=== PATIENT | male | born 1950 | race Caucasian/White ===

== ENCOUNTER → 2019-06-19 | Outpatient (CLI) | payer MEDICARE ==
--- NOTE | 2019-06-23 11:31 | HM ---
HOLTER MONITOR REPORT A 24-hour Holter monitor shows sinus mechanism, heart ranging from 41 to 121 beats per minute. Average heart rate 65 beats per minute. Sinus bradycardia in the 40s at about 7:00 in the morning. Nonsustained atrial tachycardia and one run nonsustained ventricular tachycardia. MMAMANDA / IRINEO: [id number] /
== END | disposition home or self-care (01) ==
LOC: RADECHMAIN 11:47
PROVIDERS: ATTEND Family Medicine
DX: I47.1 Supraventricular tachycardia (principal); R00.1 Bradycardia, unspecified
CPT/HCPCS: 93225; 93226

== ENCOUNTER 2021-02-04 07:20 | Day surgery (SDC) | payer MEDICARE, OTHER ==
[2021-01-30 10:17] VITALS: BMI 38.3
[~2021-02-04 07:20] MED LIST: SODIUM CHLORIDE 0.9% 1,000 ML IV SCH
[2021-02-04 07:48] VITALS: TEMP 97.8
[2021-02-04 08:16] LABS: African American GFR (CKD) >90 (>60 ml/min/1.73 sqM); Anion Gap 7 mmol/L; Blood Urea Nitrogen 12 mg/dL (9-20); Calcium 9.3 mg/dL (8.4-10.2); Carbon Dioxide 27 mmol/L (22-30); Chloride 107 mmol/L (98-107); Glucose 120 mg/dL (74-99); Non-African American GFR(CKD) >90 (>60 ml/min/1.73 sqM); Potassium 4.3 mmol/L (3.5-5.1); Sodium 141 mmol/L (137-145)
[2021-02-04] MEDS ORDERED: SODIUM CHLORIDE 0.9% 500 ML 500 ML IV ONE (08:51)
[2021-02-04] MEDS ORDERED: BENZOCAINE SPRAY 1 CAN MUCOUS MEM ONE (09:05)
[2021-02-04 10:55] VITALS: RESP 18
[2021-02-04 10:58] VITALS: BP 132/73; PULSE 53
--- NOTE | 2021-02-04 22:12 | P.TEE ---
Description of Procedure(s): Procedure performed: Transesophageal Echocardiogram with color flow doppler, pulsed wave doppler and continuous wave doppler, moderate conscious sedation Moderate conscious sedation: Moderate conscious sedation was supplied by anesthesia, see anesthesia note for full details Complications: none Indications: Symptomatic persistent Afib History: Patient is a pleasant 70-year-old male with history of persistent atrial fibrillation who has been having dyspnea with exertion. Therefore recommendation was for ASHLEY and cardioversion. PROCEDURE: After the risks, benefits and alternatives of the above mentioned procedure was explained in detail with the patient, informed consent was obtained. Patient was brought to the lab in a fasting state. Patient was given sedation. The throat was sprayed with Hurricane to anesthetize the throat. A lubricated Omni probe was then introduced into the esophagus and stomach and multiple views were obtained. 2D echo with color flow doppler, pulsed wave doppler and continuous wave doppler was utilized. Agitated saline bubbles were injected to assess for any intra-atrial shunt. The probe was then removed. Synchronized cardioversion was performed with 360J x 1 with successful cardioversion to normal sinus rhythm. Patient tolerated the procedure well. Patient was transferred to the post procedure area in stable and satisfactory condition. FINDINGS: 1. The aortic valve is tricuspid and function normally. There is trace aortic insufficiency. 2. The mitral valve appears be normal with mild regurgitation. 3. Tricuspid valve appears to be normal. 4. The interatrial septum is intact. No evidence of PFO. 5. Left atrial appendage is free of clot. 6. Left ventricular size is normal. Left ventricular function is mildly reduced with EF 45% and global hypokinesis.
== END 2021-02-04 11:18 | disposition home or self-care (01) ==
LOC: CATHCVL 07:20
PROVIDERS: ATTEND Internal Medicine
DX: I48.19 Other persistent atrial fibrillation (principal); Q87.418 Marfan syndrome with other cardiovascular manifestations; M19.90 Unspecified osteoarthritis, unspecified site; I10 Essential (primary) hypertension; Z20.822 Contact with and (suspected) exposure to COVID-19; H40.9 Unspecified glaucoma; I71.9 Aortic aneurysm of unspecified site, without rupture; Z79.82 Long term (current) use of aspirin; Z79.899 Other long term (current) drug therapy; Z82.49 Family history of ischemic heart disease and other diseases of the circulatory system; E78.5 Hyperlipidemia, unspecified; E04.2 Nontoxic multinodular goiter; Z79.01 Long term (current) use of anticoagulants
CPT/HCPCS: 80048; 87635; 92960; 93312; 93320; 93325

== ENCOUNTER → 2021-11-26 | Outpatient (CLI) | payer MEDICARE, OTHER ==
[2021-11-26 14:41] LABS: African American GFR (CKD) >90 (>60 ml/min/1.73 sqM); Blood Urea Nitrogen 13 mg/dL (9-20); Non-African American GFR(CKD) 90 (>60 ml/min/1.73 sqM)
--- NOTE | 2021-11-26 21:16 | CT ---
EXAMINATION TYPE: CT urogram wo/w con DATE OF EXAM: 11/26/2021 INDICATION: right renal mass CT DLP: 6079.9 mGy.cm Automated Exposure Control for Dose Reduction was Utilized. TECHNIQUE AND CONTRAST: CT scan of the abdomen and pelvis is performed without and with IV Contrast, as per CT urogram protoc ol. Patient injected with 100 mL of Isovue 300. 3-D reconstruction images were generated on an [employer] workstation and reviewed. COMPARISON: None available FINDINGS: 11 mm elongated hyperdensity seen at the inferior pole of the right kidney likely representing a michelle l calculus. Other scattered bilateral renal calculi measuring up to 3 mm. No hydroureter or hydroneph rosis. Simple cyst is seen in the lower pole of the right kidney measuring 4.8 cm without definite dickinson spicious feature or abnormal enhancement. A cyst is seen at the upper pole of the left kidney measuring 8mm with questionable density within, s uboptimally assessed by this scan. A small simple cyst is seen at the lower pole of the right kidney. Unremarkable kidneys otherwise. Unremarkable ureters. No gross urinary bladder abnormality. Unremark able prostate and seminal vesicles. Unremarkable liver, gallbladder, spleen and adrenals. Fatty infiltration of the pancreas. Nondistende d stomach, duodenum and small bowel. No gross colonic abnormality. Normal appendix. Bilateral fat-con taining inguinal hernias. Scattered arterial atherosclerotic calcifications. No suspicious lymphadenopathy or sizable ascites. Cardiomegaly. Unremarkable lung bases. Sclerotic focus within L3 vertebral body, possibly representin g a bone island. No aggressive bone lesion. IMPRESSION: Bilateral renal calculi measuring up to 11 mm at the lower pole of the right kidney. Indeterminate cy stic lesion measuring 8mm at the upper pole of the left kidney, too small to characterize by this CT scan. Recommend follow-up CT scan in 6 months for reassessment. A few right simple renal cysts withou t suspicious feature. Other incidental findings as described above.
== END | disposition home or self-care (01) ==
LOC: RADCTMAIN 14:00
PROVIDERS: ATTEND Urology
DX: N20.0 Calculus of kidney (principal); N28.1 Cyst of kidney, acquired
CPT/HCPCS: 82565; 84520; 74178; 36415; 74400; Q9967

== ENCOUNTER → 2024-02-09 | Outpatient (CLI) | payer MEDICARE ==
--- NOTE | 2024-02-17 23:36 | MR ---
EXAMINATION TYPE: MR shoulder LT wo con DATE OF EXAM: 02/09/2024 COMPARISON: No radiographic correlation available. HISTORY: 71-year-old male Left shoulder pain x 3 weeks. M75.112 INCOMPLETE ROTATR-CUFF TEAR/RUPTR OF L CONRADO TECHNIQUE: Multiplanar, multisequence imaging of the left shoulder is performed without contrast. FINDINGS: The long head biceps tendon appears markedly thinned and may be torn. Only diminutive fibers are note d along the bicipital groove. Heterogeneous signal of the subscapularis tendon without discrete tear. Heterogeneous signal of the infraspinatus tendon. Some minimal bursal sided fraying of the supraspina tus tendon. No high-grade partial or full thickness tear of either supraspinatus or infraspinatus ten dons. There is [id number] degenerative change at the glenohumeral joint with diffuse joint space narr owing. Some irregularity of the subchondral bone and reactive marrow signal changes especially along the mid and inferior aspect of the anterior glenoid. No atrophy of the rotator cuff musculature. Degenerative signal in the superior labrum. Some degenerative blunting of the posterior labrum. No pa ra labral cyst. No significant minimal joint effusion. There is edematous soft tissue replacement in the rotator cuff interval. Trace fluid within the subacromial/subdeltoid bursa. Heterogeneous red marrow hyperplasia. Mild degenerative change of the AC joint without subacromial impingement. IMPRESSION: 1. Edematous soft tissue replacement in the rotator cuff interval. Some differential considerations i nclude synovitis, biceps dennis sprain, and adhesive capsulitis. 2. Moderate glenohumeral joint OA with the greatest irregular cartilage loss along the mid and inferi or aspect of the anterior glenoid. 3. Supraspinatus and infraspinatus tendinosis. Some minimal bursal sided fraying is present of the dickinson praspinatus tendon. No high-grade partial or full-thickness rotator cuff tear. 4. The long head biceps tendon appears markedly thinned and may be torn. Only diminutive fibers are n oted along the bicipital groove.
== END | disposition home or self-care (01) ==
LOC: RADMRIMAIN 09:56
PROVIDERS: ATTEND Orthopaedic Surgery
DX: M75.112 Incomplete rotator cuff tear or rupture of left shoulder, not specified as traumatic (principal); R60.9 Edema, unspecified; Z96.612 Presence of left artificial shoulder joint; M19.012 Primary osteoarthritis, left shoulder; M67.814 Other specified disorders of tendon, left shoulder

== ENCOUNTER → 2024-05-24 | Outpatient (CLI) | payer MEDICARE ==
[2024-05-24 18:36] LABS: Hepatitis A Antibody IgM Nonreactive (Nonreactive); Hepatitis B Core IgM Nonreactive (Nonreactive); Hepatitis B Surface Antigen Nonreactive (Nonreactive); Hepatitis C IgG Antibody Nonreactive (Nonreactive)
[2024-05-24 18:50] LABS: HGB 13.9 g/dL (13.0-17.0); MCH 25.5 pg (27.0-32.0); MCHC 30.2 g/dL (32.0-37.0); MCV 84.4 FL (80.0-97.0); Mean Platelet Volume 11.5 FL (9.5-12.2); NRBC Per 100 WBC 0 X 10*3/uL (0.00-0.01); Platelet Count 291 X 10*3/uL (140-440); RBC 5.45 X 10*6/uL (4.40-5.60); RDW 23.1 % (11.5-14.5); WBC 10.17 X 10*3/uL (4.50-10.00)
[2024-05-24 18:52] LABS: Anisocytosis (M) 2+; Basophils # (A) 0.05 X 10*3/uL (0.00-0.10); Basophils % (A) 0.5 %; Eosinophils # (A) 0.11 X 10*3/uL (0.04-0.35); Eosinophils % (A) 1.1 %; Lymphocytes # (A) 2.04 X 10*3/uL (0.90-5.00); Lymphocytes % (A) 20.1 %; Monocytes % (A) 11.8 %; Neutrophils # (A) 6.73 X 10*3/uL (1.80-7.70); Neutrophils % (A) 66.1 %
== END | disposition home or self-care (01) ==
LOC: LABWHC1 13:43
PROVIDERS: ATTEND Family Medicine
CPT/HCPCS: 36415; 80074; 82728; 83036; 83540; 85025

== ENCOUNTER 2024-11-28 11:03 | Day surgery (SDC) | payer MEDICARE ==
[2024-11-22 11:09] VITALS: BMI 37.3
[~2024-11-28 11:03] MED LIST changes: +LIDOCAINE 1% (10MG/ML) FOR IV START INTRADERMA PRN; +ONDANSETRON 4 MG/2 ML VIAL IVP PRN; -SODIUM CHLORIDE 0.9% 1,000 ML IV SCH
[2024-11-28] MEDS: IV FLUID CONTINUATION 1,000 ML IV ONE (11:43)
[2024-11-28 12:01] VITALS: TEMP 98
[2024-11-28] MEDS: LACTATED RINGERS 1,000 ML IV SCH (12:02)
[2024-11-28] MEDS ORDERED: PROPOFOL 10 MG/ML 20 ML VIAL IV ONE (12:43)
[2024-11-28] MEDS ORDERED: LIDOCAINE 1% INJ 10MG/ML (20 ML MDV) ONE (12:43)
--- NOTE | 2024-11-28 12:58 | P.PCN ---
Date of Procedure: 11/28/24 Procedure(s) Performed: BRIEF HISTORY: Patient is a 74-year-old pleasant white man scheduled for an elective colonoscopy as a part of screening for colon cancer. PROCEDURE PERFORMED: Colonoscopy with snare polypectomy. PREOPERATIVE DIAGNOSIS: Screening for colon cancer. IV sedation per Anesthesia. PROCEDURE: After informed consent was obtained, the patient, was brought into the endoscopy unit. IV sedation was administered by Anesthesia under continuous monitoring. Digital rectal examination was normal. Initially the Olympus CF-160 flexible video colonoscope was then inserted in the rectum, gradually advanced into the cecum without any difficulty. Careful examination was performed as the scope was gradually being withdrawn. Ileocecal valve and the appendiceal orifice were visualized and appeared normal. Prep was excellent. Mucosa of the cecum had a 1 cm broad-based polyp removed by snare polypectomy. In the transverse colon there was a 3 mm and 5 mm polyp that was removed by cold snare polypectomy., Rest of the ascending colon, transverse colon, descending colon, sigmoid colon, and rectum appeared normal. Scattered sigmoid diverticulosis. Retroflexion was performed in the rectum and no lesions were seen. The patient tolerated the procedure well. IMPRESSION: 1 cm cecal polyp status post hot snare polypectomy 3 mm and 5 mm transverse colon polyp status post polypectomy Scattered sigmoid diverticulosis RECOMMENDATIONS: Findings of this examination were discussed with the patient as well as his family.. He was advised to follow-up with the biopsy results. If the biopsy reveals adenoma he can have repeat colonoscopy in 3 years.
[2024-11-28 13:34] VITALS: BP 137/83; PULSE 77; RESP 18
== END 2024-11-28 13:57 | disposition home or self-care (01) ==
LOC: ORWHC2ENDO 11:03
PROVIDERS: ATTEND Internal Medicine Gastroenterology
DX: Z12.11 Encounter for screening for malignant neoplasm of colon (principal); D12.0 Benign neoplasm of cecum; K63.5 Polyp of colon; K57.30 Diverticulosis of large intestine without perforation or abscess without bleeding; I48.91 Unspecified atrial fibrillation; I10 Essential (primary) hypertension; E78.5 Hyperlipidemia, unspecified; E03.9 Hypothyroidism, unspecified; M19.90 Unspecified osteoarthritis, unspecified site; Z79.01 Long term (current) use of anticoagulants; Z79.899 Other long term (current) drug therapy; Z86.718 Personal history of other venous thrombosis and embolism
CPT/HCPCS: 88305; 45385; J2003; J2704

== ENCOUNTER 2024-11-30 09:49 | Emergency (ER) | payer MEDICARE ==
[2024-11-30 09:54] VITALS: RESP 18
--- NOTE | 2024-11-30 10:51 | ED ---
GI Bleed HPI - General Chief complaint: GI Bleed Stated complaint: blood in stool Time Seen by Provider: 11/30/24 10:30 Source: patient, RN notes reviewed Mode of arrival: ambulatory Limitations: no limitations - History of Present Illness Initial comments: 74-year-old male presenting for rectal bleeding x 1 day. Patient underwent colonoscopy with Dr. Sen 2 days ago where she removed several polyps. Patient resumed his Xarelto yesterday. This morning he had his first bowel movement since the colonoscopy which was bright red blood in the toilet bowl. Denies abdominal pain or rectal pain. Denies lightheadedness, dizziness, chest pain, shortness of breath. - Related Data Home Medications Medication Instructions Recorded Confirmed Atorvastatin [Lipitor] 40 mg PO HS 01/30/21 11/28/24 Metoprolol Succinate (ER) [Toprol 50 mg PO BID 01/30/21 11/28/24 Xl] Rivaroxaban [Xarelto] 20 mg PO HS 01/30/21 11/28/24 Artificial Tears-Hypromellose 1 drops BOTH EYES TID 11/22/24 11/28/24 [Artificial Tear Drops] Bromfenac Sodium [Prolensa Ophth 1 drop LEFT EYE BID 11/22/24 11/28/24 Soln] Difluprednate [Durezol Ophth Soln] 1 drop LEFT EYE QID 11/22/24 11/28/24 Losartan [Cozaar] 50 mg PO DAILY 11/22/24 11/28/24 Ofloxacin 0.3% Ophth Soln [Ocuflox 1 drops LEFT EYE QID 11/22/24 11/28/24 Ophth Soln] Allergies Allergy/AdvReac Type Severity Reaction Status Date / Time No Known Allergies Allergy Verified 11/30/24 09:54 Review of Systems ROS Statement: Those systems with pertinent positive or pertinent negative responses have been documented in the HPI. ROS Other: All systems not noted in ROS Statement are negative. Past Medical History Past Medical History: Atrial Fibrillation, Deep Vein Thrombosis (DVT), Hyperlipidemia, Osteoarthritis (OA), Thyroid Disorder Additional Past Medical History / Comment(s): DVT OCTOBER 2020-WITH BYPASS SURGERY LEFT LEG., COLON POLYPS, ARTHRITIS HANDS & KNEES, THYROID NODULES.,TINNITUS., SEE CARDIOLOGY H & P. CURRENTLY ON EYE DROPS LT EYE FOR SOME INFLAMAATION AFTER CATARACT SX History of Any Multi-Drug Resistant Organisms: None Reported Past Surgical History: Hernia Repair, Joint Replacement Additional Past Surgical History / Comment(s): PARTIAL THYROID REMOVED, BYPASS SURGERY LEFT LEG ([facility]), BILAT TKA, BILAT CATARACTS REMOVED WITH LENS IMPLANTS, COLONOSCOPY, Past Anesthesia/Blood Transfusion Reactions: No Reported Reaction Past Psychological History: No Psychological Hx Reported Smoking Status: Never smoker Past Alcohol Use History: None Reported Past Drug Use History: None Reported - Past Family History Mother Family Medical History: Cancer Additional Family Medical History / Comment(s): BREAST CANCER General Exam Limitations: no limitations General appearance: alert, in no apparent distress Head exam: Present: atraumatic, normocephalic, normal inspection Eye exam: Present: normal appearance, PERRL, EOMI. Absent: scleral icterus, conjunctival injection, periorbital swelling Respiratory exam: Present: normal lung sounds bilaterally. Absent: respiratory distress, wheezes, rales, rhonchi, stridor Cardiovascular Exam: Present: regular rate, normal rhythm, normal heart sounds. Absent: systolic murmur, diastolic murmur, rubs, gallop, clicks GI/Abdominal exam: Present: soft, normal bowel sounds. Absent: distended, tenderness, guarding, rebound, rigid Rectal exam: Absent: normal inspection (Bright red blood on glove after rectal exam), hemorrhoids, mass, tenderness Neurological exam: Present: alert, oriented X3 Psychiatric exam: Present: normal affect, normal mood Skin exam: Present: warm, dry, intact, normal color. Absent: rash Course Vital Signs 11/30/24 11/30/24 09:52 14:01 Temperature 97.6 F 98.1 F Pulse Rate 77 79 Respiratory 18 18 Rate Blood Pressure 157/86 133/99 O2 Sat by Pulse 98 Oximetry Medical Decision Making - Medical Decision Making Was pt. sent in by a medical professional or institution (, PA, MOTOR VEHICLES SUPERVISOR, urgent care, hospital, or care home...) When possible be specific @ -No Did you speak to anyone other than the patient for history (EMS, parent, family, police, friend...)? What history was obtained from this source @ -No Did you review nursing and triage notes (agree or disagree)? Why? @ -I reviewed and agree with nursing and triage notes Were old charts reviewed (outside hosp., previous admission, EMS record, old EKG, old radiological studies, urgent care reports/EKG's, care home records)? Report findings @ -No old charts were reviewed Differential Diagnosis (chest pain, altered mental status, abdominal pain women, abdominal pain men, vaginal bleeding, weakness, fever, dyspnea, syncope, headache, dizziness, GI bleed, back pain, seizure, CVA, palpatations, mental health, musculoskeletal)? @ -Differential GI Bleed: Esophageal varices, aortoenteric fistula, Suzanne-Perez, gastritis, peptic ulcer disease, diverticulosis, inflammatory bowel disease, hemorrhoids, fissure, colitis, malignancy, Meckel's diverticulum, this is not meant to be an all- inclusive list. EKG interpreted by me (3pts min.). @ -As above X-rays interpreted by me (1pt min.). @ -None done CT interpreted by me (1pt min.). @ -CT abdomen pelvis reveals no acute process U/S interpreted by me (1pt. min.). @ -None done What testing was considered but not performed or refused? (CT, X-rays, U/S, labs)? Why? @ -None What meds were considered but not given or refused? Why? @ -None Did you discuss the management of the patient with other professionals (professionals i.e. , PA, MOTOR VEHICLES SUPERVISOR, lab, RT, psych nurse, social media project manager, commercial specialist, teacher, donor relations officer, case work aide)? Give summary @ -I spoke with Dr. Sen who recommends discharge and hold blood thinner for the next 3 days. Was smoking cessation discussed for >3mins.? @ -No Was critical care preformed (if so, how long)? @ -No Were there social determinants of health that impacted care today? How? (Homelessness, low income, unemployed, alcoholism, drug addiction, transportati on, low edu. Level, literacy, decrease access to med. care, [facility] [facility], rehab)? @ -No Was there de-escalation of care discussed even if they declined (Discuss DNR or withdrawal of care, Hospice)? DNR status @ -No What co-morbidities impacted this encounter? (DM, HTN, Smoking, COPD, CAD, Cancer, CVA, ARF, Chemo, Hep., AIDS, mental health diagnosis, sleep apnea, morbid obesity)? @ -None Was patient admitted / discharged? Hospital course, mention meds given and route, prescriptions, significant lab abnormalities, going to OR and other pertinent info. @ -Discharge. 74-year-old male presenting for rectal bleeding status post colonoscopy. Patient is on Xarelto. No abdominal pain. Vital signs within acceptable limits. There is bright red blood on glove after rectal exam however no tenderness. Lab work is largely unremarkable. Hemoglobin normal at 15. CT abdomen pelvis reveals no acute process. I spoke with Dr. Sen who recommends discharge and to hold blood thinner for the next 3 days. Discussed results with patient. Patient will be discharged at this time with strict return precautions and follow-up care discussed. Advised to return to the ER if bleeding continues or symptoms change/worsen. Case was discussed with my ED attending Dr. Lee. Undiagnosed new problem with uncertain prognosis? @ -No Drug Therapy requiring intensive monitoring for toxicity (Heparin, Nitro, Insulin, Cardizem)? @ -No Were any procedures done? @ -No Diagnosis/symptom? @ -Hematochezia Acute, or Chronic, or Acute on Chronic? @ -Acute Uncomplicated (without systemic symptoms) or Complicated (systemic symptoms)? @ -Uncomplicated Side effects of treatment? @ -No Exacerbation, Progression, or Severe Exacerbation? @ -No Poses a threat to life or bodily function? How? (Chest pain, USA, AL, pneumonia, PE, COPD, DKA, ARF, appy, cholecystitis, CVA, Diverticulitis, Homicidal, Suicidal, threat to staff... and all critical care pts) @ -Not at this time - Lab Data Result diagrams: 11/30/24 10:32 11/30/24 10:32 Lab Results 11/30/24 11/30/24 11/30/24 Range/Units 10:32 10:32 10:32 WBC 7.08 (4.50-10.00) 10*3/uL RBC 4.66 (4.40-5.60) 10*6/uL Hgb 14.8 (13.0-17.0) g/dL Hct 43.8 (39.6-50.0) % MCV 94.0 (80.0-97.0) fL MCH 31.8 (27.0-32.0) pg MCHC 33.8 (32.0-37.0) g/dL Plt Count 218 (140-440) 10*3/uL MPV 10.6 (9.5-12.2) fL Immature Gran % (Auto) 0.1 % Neutrophils % 64.8 % Lymphocytes % 20.6 % Monocytes % 10.7 % Eosinophils % 3.2 % Basophils % 0.6 % Immature Gran # 0.01 (0.00-0.04) 10*3/uL Neutrophils # 4.58 (1.80-7.70) 10*3/uL Lymphocytes # 1.46 (0.90-5.00) 10*3/uL Monocytes # 0.76 (0.20-1.00) 10*3/uL Eosinophils # 0.23 (0.04-0.35) 10*3/uL Basophils # 0.04 (0.00-0.10) 10*3/uL PT 16.1 H (10.0-12.5) sec INR 1.5 H (<1.2) APTT 29.2 (22.0-30.0) sec Sodium 139 (137-145) mmol/L Potassium 4.1 (3.5-5.1) mmol/L Chloride 104 (98-107) mmol/L Carbon Dioxide 26 (22-30) mmol/L Anion Gap 9 mmol/L BUN 13 (9-20) mg/dL Creatinine 0.72 (0.66-1.25) mg/dL Est GFR (CKD-EPI)AfAm >90 (>60 ml/min/1.73 sqM) Est GFR (CKD-EPI)NonAf >90 (>60 ml/min/1.73 sqM) Glucose 143 H (74-99) mg/dL Plasma Lactic Acid Nito (0.7-2.0) mmol/L Calcium 9.4 (8.4-10.2) mg/dL Total Bilirubin 0.8 (0.2-1.3) mg/dL AST 35 (17-59) U/L ALT 19 (4-49) U/L Alkaline Phosphatase 52 (38-126) U/L Total Protein 6.6 (6.3-8.2) g/dL Albumin 3.5 (3.5-5.0) g/dL 11/30/24 Range/Units 10:51 WBC (4.50-10.00) 10*3/uL RBC (4.40-5.60) 10*6/uL Hgb (13.0-17.0) g/dL Hct (39.6-50.0) % MCV (80.0-97.0) fL MCH (27.0-32.0) pg MCHC (32.0-37.0) g/dL Plt Count (140-440) 10*3/uL MPV (9.5-12.2) fL Immature Gran % (Auto) % Neutrophils % % Lymphocytes % % Monocytes % % Eosinophils % % Basophils % % Immature Gran # (0.00-0.04) 10*3/uL Neutrophils # (1.80-7.70) 10*3/uL Lymphocytes # (0.90-5.00) 10*3/uL Monocytes # (0.20-1.00) 10*3/uL Eosinophils # (0.04-0.35) 10*3/uL Basophils # (0.00-0.10) 10*3/uL PT (10.0-12.5) sec INR (<1.2) APTT (22.0-30.0) sec Sodium (137-145) mmol/L Potassium (3.5-5.1) mmol/L Chloride (98-107) mmol/L Carbon Dioxide (22-30) mmol/L Anion Gap mmol/L BUN (9-20) mg/dL Creatinine (0.66-1.25) mg/dL Est GFR (CKD-EPI)AfAm (>60 ml/min/1.73 sqM) Est GFR (CKD-EPI)NonAf (>60 ml/min/1.73 sqM) Glucose (74-99) mg/dL Plasma Lactic Acid Nito 1.6 (0.7-2.0) mmol/L Calcium (8.4-10.2) mg/dL Total Bilirubin (0.2-1.3) mg/dL AST (17-59) U/L ALT (4-49) U/L Alkaline Phosphatase (38-126) U/L Total Protein (6.3-8.2) g/dL Albumin (3.5-5.0) g/dL - EKG Data -: EKG Interpreted by Sd EKG Comments: EKG reveals atrial fibrillation with no acute ST changes. Ventricular rate 75 bpm, NM interval, calculated, QRS duration 145, QT/QTc 430/460 Disposition Clinical Impression: Hematochezia Disposition: HOME SELF-CARE Condition: Stable Instructions (If sedation given, give patient instructions): Gastrointestinal Bleeding (ED) Additional Instructions: Please hold your Xarelto until Wednesday morning. If rectal bleeding continues or you begin to experience abdominal pain, please return to the ER for further evaluation. Please return to the Emergency Department if symptoms worsen or any other concerns. Is patient prescribed a controlled substance at d/c from ED?: No Referrals: Kannan Wheat MD [Primary Care Provider] - 1-2 days Time of Disposition: 13:54
[2024-11-30 11:27] LABS: ALT 19 U/L (4-49); AST 35 U/L (17-59); African American GFR (CKD) >90 (>60 ml/min/1.73 sqM); Albumin 3.5 g/dL (3.5-5.0); Alkaline Phosphatase 52 U/L (38-126); Anion Gap 9 mmol/L; Blood Urea Nitrogen 13 mg/dL (9-20); Calcium 9.4 mg/dL (8.4-10.2); Carbon Dioxide 26 mmol/L (22-30); Chloride 104 mmol/L (98-107); Glucose 143 mg/dL (74-99); Non-African American GFR(CKD) >90 (>60 ml/min/1.73 sqM); Potassium 4.1 mmol/L (3.5-5.1); Sodium 139 mmol/L (137-145); Total Bilirubin 0.8 mg/dL (0.2-1.3); Total Protein 6.6 g/dL (6.3-8.2)
[2024-11-30 11:28] LABS: INR 1.5 (<1.2); Partial Thromboplastin Time 29.2 sec (22.0-30.0); Prothrombin Time 16.1 sec (10.0-12.5)
[2024-11-30 11:39] LABS: Basophils # (A) 0.04 10*3/uL (0.00-0.10); Basophils % (A) 0.6 %; Eosinophils # (A) 0.23 10*3/uL (0.04-0.35); Eosinophils % (A) 3.2 %; HCT 43.8 % (39.6-50.0); HGB 14.8 g/dL (13.0-17.0); Lymphocytes # (A) 1.46 10*3/uL (0.90-5.00); Lymphocytes % (A) 20.6 %; MCH 31.8 pg (27.0-32.0); MCHC 33.8 g/dL (32.0-37.0); Mean Platelet Volume 10.6 fL (9.5-12.2); Monocytes # (A) 0.76 10*3/uL (0.20-1.00); Monocytes % (A) 10.7 %; Neutrophils # (A) 4.58 10*3/uL (1.80-7.70); Neutrophils % (A) 64.8 %; Platelet Count 218 10*3/uL (140-440); RBC 4.66 10*6/uL (4.40-5.60); WBC 7.08 10*3/uL (4.50-10.00)
--- NOTE | 2024-11-30 12:21 | CT ---
EXAMINATION TYPE: CT abdomen pelvis w con CT DLP: 2755.4 mGycm, Automated exposure control for dose reduction was used. DATE OF EXAM: 11/30/2024 12:05 PM COMPARISON: CT urogram 11/26/2021 CLINICAL INDICATION:Male, 74 years old with history of rectal bleeding s/p colonoscopy; Rectal bleedi ng s/p Colonoscopy x 2 days ago TECHNIQUE: Standard CT of the abdomen and pelvis following the administration of 100 cc of Isovue 3 00 IV contrast material. Coronal and sagittal reformats were performed. FINDINGS: LOWER CHEST: No significant findings. ABDOMEN LIVER: Unremarkable GALLBLADDER AND BILE DUCTS: Unremarkable. PANCREAS: Lipomatous pseudohypertrophy changes. SPLEEN: Subcentimeter hypodensity within the spleen which is too small to characterize but statistica lly is benign. ADRENAL GLANDS: Unremarkable. KIDNEYS AND URETERS: No evidence of hydronephrosis. The kidneys enhance symmetrically. Exophytic righ t renal lower pole 4.9 cm simple cyst. Additional adjacent 1.7 cm simple cyst. No flap recommended. N onobstructing right renal lower pole 1.1 calculus. Additional bilateral nonobstructing punctate renal calculi. Contrast is demonstrated within both collecting systems and proximal ureters on delayed pha se. No hydroureter. PELVIS BLADDER: Unremarkable REPRODUCTIVE: Coarse calcifications of the prostate gland are identified. ABDOMEN & PELVIS STOMACH AND BOWEL: Stomach and duodenum are unremarkable. Scattered colonic diverticulosis without ev idence for acute diverticulitis. No focal bowel wall thickening or surrounding inflammatory changes. The appendix is within normal limits. No hyperdense material identified within the bowel to suggest b leed. No evidence of bowel obstruction. PERITONEUM: No evidence of pneumoperitoneum or free fluid. VASCULATURE: Mild atherosclerotic calcifications are present throughout the abdominal aorta and its b ranches. No evidence of aortic aneurysm. MUSCULOSKELETAL: No acute osseous abnormalities. Degenerative changes of the right SI joint with ante rior bridging. Mild multilevel degenerative disc disease. Sclerotic bone island within the L3 vertebr al body. LYMPH NODES: No evidence for lymphadenopathy. SOFT TISSUE/ABDOMINAL WALL: Small fat filled bilateral inguinal hernias. IMPRESSION: 1. No CT evidence for acute abdominal systolic process. No CT evidence for GI bleed. 2. Colonic diverticulosis without evidence for acute diverticulitis. 3. Nonobstructive bilateral renal calculi. 4. [facility], , 11/30/2024 12:19 PM
[2024-11-30 14:04] VITALS: BP 133/99; PULSE 79; TEMP 98.1
== END 2024-11-30 14:10 | disposition home or self-care (01) ==
LOC: EC 09:49
DX: K92.1 Melena (principal)
CPT/HCPCS: 36415; 93005; 80053; 83605; 85025; 85610; 85730; 74177; 99284; Q9967